=== PATIENT | female | born 1980 | race Caucasian/White ===

== ENCOUNTER 2018-02-11 21:38 | Emergency (ER) | payer OTHER ==
[2018-02-11] MEDS ORDERED: Adacel (T-DAP) 0.5 ML VIAL ONE (21:55)
[2018-02-11] MEDS ORDERED: Amoxicillin/Potassium Clav 875 MG TAB ONE (21:55)
[2018-02-11] MEDS ORDERED: Bacitracin Zinc 1 Packet ONE (22:04)
== END 2018-02-11 22:16 | disposition home or self-care (01) ==
LOC: SCSER 21:38
DX: S61.251A Open bite of left index finger without damage to nail, initial encounter (principal); S61.250A Open bite of right index finger without damage to nail, initial encounter; S51.852A Open bite of left forearm, initial encounter; S51.851A Open bite of right forearm, initial encounter; Z23 Encounter for immunization; W55.01XA Bitten by cat, initial encounter
CPT/HCPCS: 90471; 90715